=== PATIENT | female | born 1980 | race Hispanic/Latino ===

== ENCOUNTER → 2022-08-09 | Day surgery (SDC) | payer OTHER ==
[~2022-08-09] MED LIST: BUPIVACAINE 0.25% 30ML SDV ONE; FENTANYL CITRATE/PF 100MCG/2 ML INJ ONE; KETOROLAC TROMETHAMINE 30 MG/ML VIAL ONE; LIDOCAINE 2%/ EPINEPHRINE 20ML MDV ONE; LIDOCAINE HCL 2% LOCAL INJ 5 ML SDV VIAL INJ ONE; MIDAZOLAM HCL 2 MG/2 ML VIAL ONE; OMEGA 3 1,0001 EACH PO; ONDANSETRON HCL INJ 2MG/ML 2ML 2 MG/ML VIAL ONE; PROPOFOL IV EMULSION 10 MG/ML 20 ML VIAL ONE; SEVOFLURANE INHAL SOLN 250 ML PEN BTL ONE
[2022-08-09] MEDS: FENTANYL CITRATE/PF 100MCG/2 ML INJ ONE (09:32)
[2022-08-09 10:13] VITALS: BP 125/96
== END ==
LOC: OR 07:21
PROVIDERS: ATTEND Orthopaedic Surgery
DX: S83.232A Complex tear of medial meniscus, current injury, left knee, initial encounter (principal); S83.282A Other tear of lateral meniscus, current injury, left knee, initial encounter; M67.362 Transient synovitis, left knee; M22.42 Chondromalacia patellae, left knee; M67.52 Plica syndrome, left knee; X58.XXXA Exposure to other specified factors, initial encounter; I10 Essential (primary) hypertension
CPT/HCPCS: 29880; 88304; J0690; J1885; J2001 ×2; J2250; J2405; J2704; J3010